=== PATIENT | male | born 1995 | race Hispanic/Latino ===

== ENCOUNTER 2016-08-09 00:11 | Emergency (ER) | payer SELFPAY ==
[2016-08-09 00:31] VITALS: BP 130/83
[2016-08-09 01:32] LABS: Basophils % (Auto) 0.2 % (0.0-1.8); Eosinophils % (Auto) 0.1 % (0.0-4.3); Hematocrit 47.4 % (35.5-45.6); Mean Corpuscular HGB Conc 34 % (32-34); Mean Corpuscular Hemoglobin 31 pg (28-32); Mean Corpuscular Volume 92 fl (84-94); Platelet Count 226 K/mm3 (140-440); Red Blood Count 5.13 M/mm3 (3.65-5.03); Red Cell Distribution Width 13.2 % (13.2-15.2); White Blood Count 10.9 K/mm3 (4.5-11.0)
[2016-08-09 01:42] LABS: Alanine Aminotransferase 77 units/L (7-56); Albumin 4.9 g/dL (3.9-5); Albumin/Globulin Ratio 1.6 %; Alkaline Phosphatase 62 units/L (35-129); Anion Gap 20 mmol/L; Bilirubin,Total 0.6 mg/dL (0.1-1.2); Blood Urea Nitrogen 9 mg/dL (9-20); Calcium 9.8 mg/dL (8.4-10.2); Carbon Dioxide 22 mmol/L (22-30); Chloride 104.8 mmol/L (98-107); Glucose 93 mg/dL (75-100); Potassium 4.2 mmol/L (3.6-5.0); Sodium 143 mmol/L (137-145); Total Protein 7.9 g/dL (6.3-8.2)
--- NOTE | 2016-08-11 21:17 | ED Elopement Review ---
ED Pt Elopement review - Results review Lab results: Laboratory Tests 08/09/16 08/09/16 08/09/16 00:42 00:42 00:42 WBC 10.9 RBC 5.13 H Hgb 16.0 H Hct 47.4 H MCV 92 MCH 31 MCHC 34 RDW 13.2 Plt Count 226 Lymph % (Auto) 10.3 L [place] % (Auto) 5.4 Eos % (Auto) 0.1 Baso % (Auto) 0.2 Lymph # 1.1 L [place] # 0.6 Eos # 0.0 Baso # 0.0 Seg Neutrophils % 84.0 H Seg Neutrophils # 9.2 H Sodium 143 Potassium 4.2 Chloride 104.8 Carbon Dioxide 22 Anion Gap 20 BUN 9 Creatinine 1.0 Estimated GFR > 60 BUN/Creatinine Ratio 9.00 Glucose 93 Calcium 9.8 Total Bilirubin 0.6 AST 41 H ALT 77 H Alkaline Phosphatase 62 Total Protein 7.9 Albumin 4.9 Albumin/Globulin Ratio 1.6 Salicylates < 0.3 L Acetaminophen Plasma/Serum Alcohol 08/09/16 08/09/16 00:42 00:42 WBC RBC Hgb Hct MCV MCH MCHC RDW Plt Count Lymph % (Auto) [place] % (Auto) Eos % (Auto) Baso % (Auto) Lymph # [place] # Eos # Baso # Seg Neutrophils % Seg Neutrophils # Sodium Potassium Chloride Carbon Dioxide Anion Gap BUN Creatinine Estimated GFR BUN/Creatinine Ratio Glucose Calcium Total Bilirubin AST ALT Alkaline Phosphatase Total Protein Albumin Albumin/Globulin Ratio Salicylates Acetaminophen < 15.0 Plasma/Serum Alcohol < 0.01 - Call Back decision Pt Call Back Decision: No action required
== END 2016-08-09 01:10 | disposition left against medical advice (07) ==
LOC: ED 00:11
DX: Z53.21 Procedure and treatment not carried out due to patient leaving prior to being seen by health care provider (principal)
CPT/HCPCS: 36415; 80053; 85025; 93005; 93010; G0480; 80320